=== PATIENT | female | born 1935 | race Caucasian/White ===

== ENCOUNTER 2017-12-16 07:35 | Inpatient (IN) | payer MEDICARE, OTHER, SELFPAY ==
[2017-12-05 09:47] VITALS: BMI 32.3
[2017-12-16] VITALS (21 sets, daily range): BP systolic 112–155; BP diastolic 47–85; PULSE 65–84; RESP 11–20; TEMP 36–37; O2SAT 90–97; BMI 29.8
--- NOTE | 2017-12-16 | DI.RAD.S_ITS ---
PROCEDURE: XR CHEST 1V INDICATIONS: History of lung tumors / nodules TECHNIQUE: One view of the chest was acquired. COMPARISON: None. FINDINGS: Surgical changes and devices: None. Lungs and pleura: No postsurgical changes are noted in left hilar region and left lower lung field. There is no focal infiltrate, pleural effusion or pneumothorax. Mediastinum: Tortuous thoracic aorta is noted. Mild atherosclerotic calcifications along the ascending thoracic aorta is seen. Cardiac size is normal. Bones and chest wall: No suspicious bony lesions. Overlying soft tissues appear unremarkable. Impression: Postsurgical changes in left hilar region and left lower lung field. No acute cardiopulmonary pathology. Dictated by: Luciano Zazueta M.D. on 12/16/2017 at 9:42 Approved by: Luciano Zazueta M.D. on 12/16/2017 at 10:03
--- NOTE | 2017-12-16 | DI.RAD.S_ITS ---
PROCEDURE: XR LUMBAR SPINE 2-3V INDICATIONS: L4-5 TLIF TECHNIQUE: 2 views of the lumbar spine were acquired. COMPARISON: [facility] [place], [facility], XR LUMBAR SPINE 2 OR 3 VIEWS, 11/03/2017, 15:53. [facility] [place], RF, LUMBAR TRANSLAMINAR, 06/02/2017, 15:07. [facility] [place], RF, LUMBAR FACET, 04/21/2017, 14:02. [facility] [place], RF, LUMBAR TRANSLAMINAR, 03/07/2017, 7:53. [facility] [place], CR, XR LUMBAR SPINE WITH OBLIQUES, 02/27/2017, 8:31. FINDINGS: Bones: 5 [id number] vertebrae are present. There is normal bony alignment. No vertebral body compression fractures. No suspicious bony lesions. Soft tissues: Overlying bowel gas pattern is normal. No suspicious soft tissue calcifications. IMPRESSION: Normal alignment established after bilateral transverse pedicle screw placement and vertical fixation rods crossing L4-5, with interbody cage this prosthesis centrally positioned at the L4-5 interspace. Dictated by: Brodie Puga M.D. on 12/16/2017 at 13:25 Approved by: Brodie Puga M.D. on 12/16/2017 at 13:37
[2017-12-16] MEDS: LACTATED RINGERS 1,000 ML 42 ML IV ×2 (09:09→11:17)
[2017-12-16] MEDS: APREPITANT 40 MG CAPSULE PO (09:09)
[2017-12-16] MEDS: CEFAZOLIN 2 GM/100 ML FROZ.PIGGY IV ×2 (10:03→18:24)
--- NOTE | 2017-12-16 10:08 | P.OP_ITS ---
Operative Date/Time/Diagnoses Date of procedure: 12/16/17 Time of procedure: 12:37 Pre-op diagnosis: lumbar stenosis with radiculopathy Lumbar spondylolisthesis Post-op diagnosis: same Procedure & Clinicians Procedure: L4-5 laminectomy with microscope L4-5 TLIF (post/post innerbody fusion) cage screws icbg microscope placement of epidural catheter Same procedure as scheduled: Yes Indications: [age] year old female with intractable pain from stenosis. They had failed conservative management and requested operative intervention. Risks and benefits of surgery were discussed and appropriate consents were obtained. Surgeon: Sky Jimenez [employer] Technician: Dominique Charles Click Yes if Unassisted: No Anesthesia Type: General Operative Notes Findings: none Closure Type: primary Specimen(s): none sent Implants & Drains: NuVasive Reline MAS screws and Globus Rise cage Applied: catheter Estimated Blood Loss (mL): 20 Blood products transfused: none Procedure in detail: The patient was brought to the operating room and intubated on the table. A time-out was performed. They were then rolled over to the well-padded Chito table in the prone position. Preoperative antibiotics were given. The back was prepped and draped in the standard sterile fashion. Using fluoroscopy, a 4 cm longitudinal incision was made to the left of the midline. We used Bovie to come down to and split the lumbodorsal fascia. Using fluoroscopy and monitoring, we then percutaneously placed Jamshidi needles down the pedicles of L4 and L5 on the left side. These were changed out to guidewires and then we tapped and then placed the NuVasive MAS Precept screw shanks. We then opened up the retractors and used Bovie to clear up the posterolateral gutter as well as medially along the lamina to the spinous processes. A bur was used to decorticate the transverse processes. Using a combination of bur and Kerrison rongeurs, a laminectomy was performed from the left side. We cleared over past the midline and carefully depressed the dura until we were able to decompress the opposite side. We cleared out the neural foramen. This completed the laminectomy at L4-5. This was separate and distinct from the TLIF approach as we were decompressing the severely tight canal and the nerves. We then began the TLIF prep. A complete facetectomy was performed on this side at L4-5. We carefully cleaned up the remainder of the foramen until we could easily retract the exiting root as well as clearing medially below the dura and expose the disc space. The disc was prepped with bipolar and then an annulotomy was performed. We performed a diskectomy using a combination of paddles, radha, Kerrison, and curettes. We distracted the disc using a paddle and locked the retractor in an open position. We then filled the disc space with Osteocell bone graft. We then placed the globus Rise cage under fluoroscopy and then filled this in with more bone graft. The distraction on the retractor was released to compress down. This completed the posterior interbody fusion portion of the TLIF at L4-5. We then placed the screw heads, stephen, and locked down the set screws. The wound was copiously irrigated. A small stab incision was made over the PSIS. We used a Jamshidi needle to aspirate several mL of bone marrow from the pelvis. This was mixed with the remaining Osteocell and combined with all of the locally harvested bone graft and placed in the posterolateral gutter for the posterior fusion of the TLIF at L4-5. An epidural catheter was then placed in the spinal canal by carefully depressing the dura and advancing it 6 cm cephalad under the remaining lamina without resistance. The muscle fascia was closed. The catheter was then injected with a solution containing 4 mL of 0.5% Marcaine, 1 mg Stadol, 4 mg Duramorph, and 100 mcg of fentanyl. This was injected without resistance and the catheter was pulled. We then went to the opposite side. Again using fluoroscopy, a 3 cm incision was made and Bovie was used to come down to split the fascia. Using neural monitoring and fluoroscopy, Jamshidi needles were advanced down the pedicles of L4 and L5 on the right side. These were switched over guidewires, tapped, and screws placed. We then placed a stephen and locked the set screws on this side. The wound was irrigated. The fascia was closed. Vancomycin powder was placed in the wounds. The superficial and skin were closed. A sterile dressing was placed. The patient was then rolled over extubated and brought to recovery room without complications. Complications: none Condition: stable Disposition: PACU Plan for aftercare: Inpatient. Up with therapy
--- NOTE | 2017-12-16 10:38 | SUR.OPER ---
Prone on spine table, head in foam head support, padded chest and pelvic supports, gel pad at knees, lower legs supported by pillows; nipples, genitalia and toes free of pressure, arms secured on foam padded arm boards at <90 degrees abduction. Tape over blanket at thigh secured to table.
[2017-12-16] MEDS: VANCOMYCIN 1,000 MG VIAL 1000 MG TOP (10:49)
[2017-12-16] MEDS: SODIUM CHLORIDE 0.9% 1,000 ML, GENTAMICIN 80 MG IRR ×2 (10:49→10:51)
[2017-12-16] MEDS: BUPIVACAINE 0.5% (PF) 4 ML, MORPHINE-PF 4 MG, BUTORPHANOL 1 MG, fentaNYL 100 MCG INJ (10:53)
[2017-12-16] MEDS: THROMBIN (BOVINE) 5,000 UNIT VIAL 5000 UNIT TOP (11:00)
[2017-12-16] MEDS: hydrOXYzine 50 MG/ML INJ 25 MG IM (13:36)
[2017-12-16] MEDS: fentaNYL 100 MCG/2 ML INJ 25 MCG IV ×2 (13:36→13:49)
--- NOTE | 2017-12-16 14:08 | SUR.PHASEI ---
attempted to call report, rn unavailable [phone]
[2017-12-16] MEDS: LACTATED RINGERS 1,000 ML 125 ML IV ×2 (15:00→23:51)
--- NOTE | 2017-12-16 15:09 | PT.IPTN ---
Current Diagnoses Spondylolisthesis, lumbar region (12/16/17) Spinal stenosis, lumbar region with neurogenic claudication (12/16/17) Surgery Performed Operation Date: 12/16/17 10:15 Actual Procedures p L4-5 TLIF w/ Bone Graft - Sky Jimenez MD Physical Therapy Treatment Note M3 PT-IP Subjective Start: 12/16/17 15:08 Freq: NEEDED Status: Active Protocol: Document 12/16/17 15:08 AB (Rec: 12/16/17 15:09 AB [id number]) Subjective Physical Therapy Visit Type Type Patient Refusal Notes checked on pt and nurse stated that pt just got into the floor. talked to pt and refused PT at this time and wants to just rest but agreed for PT to check on her later on today.
--- NOTE | 2017-12-16 15:36 | PC.NURSE ---
Pt arrived to room at 1435. Awakens to verbal stimuli, denies discomfort at this time. IV infusing via pump as per orders. in room. Call light w/in reach, bed alarm on for pt safety.
[2017-12-16] MEDS: ACETAMINOPHEN 325 MG TABLET 975 MG PO (20:33)
[2017-12-16] MEDS: PRAMIPEXOLE 0.125 MG TABLET 0.25 MG PO (20:33)
[2017-12-16] MEDS: DOCUSATE 100 MG CAPSULE PO (20:33)
[2017-12-16] MEDS: GABAPENTIN 300 MG CAPSULE PO (20:33)
[2017-12-16] MEDS: SENNOSIDES 8.6 MG TABLET 17.2 MG PO (20:34)
--- NOTE | 2017-12-16 21:53 | PC.NURSE ---
Angelika shift- Pt arrived to room 204 from PACU via bed @ 1420- coversite drsg to lower back CDI with tiny spot to bottom left corner serosang drainage. Pt was obtunded, but now drowsy and resting quietly with eyes closed. Easily awakened throughout shift, answers questions appropriately. A/O x3, LS clear, remains on 1L for SpO2 95-96%, cont pulse ox on for 12 hrs. RAC LR @ 125 infusing. Small red abrasion to top right orbital area, possible from tubing or mask during surgery. 2 x 2 gauze under O2 tubing on each check for skin protection. CMS ++, ankle waves, wiggle toes, calf SCD'd on. Waller patent and draining clear yellow urine. Q-2 turning. stayed for a while and will return in morning. Able to swallow all 9 pills at one time. Call light in reach and bed alarm on.
[2017-12-17] VITALS (7 sets, daily range): BP systolic 94–141; BP diastolic 42–66; PULSE 61–85; RESP 16–18; TEMP 36.6–37; O2SAT 91–98
[2017-12-17] MEDS: CEFAZOLIN 2 GM/100 ML FROZ.PIGGY IV (02:16)
--- NOTE | 2017-12-17 03:59 | PC.NURSE ---
Addendum entered by Marisela Mitchell R.N. 12/17/17 07:00: Has been off of 02 for an hour. 88- 91%. Increased to 1/2L 95% Original Note: shift note Met pt at start of shift. Alert during shift report, with no complaints of pain. No complaints of N/VAOx3. 1L nasal cannula 96%. Decreased to 1/2L with 96%. Waller draining clear, yellow urine. Pt remains in bed throughout shift sleeping. 1 4 by 4 dressing, mostly saturated. Reinforced. Q2H turns. Call light within reach.
[2017-12-17] MEDS: LEVOTHYROXINE 75 MCG TABLET PO (05:39)
[2017-12-17] MEDS: OXYCODONE IR 5 MG TABLET PO ×2 (05:39→09:13)
[2017-12-17] MEDS: PANTOPRAZOLE 20 MG TABLET PO (05:40)
[2017-12-17 05:41] LABS: Hematocrit 36.1 % (36-46)
[2017-12-17 05:55] LABS: BUN Creatinine Ratio 18.2 (6-22); Blood Urea Nitrogen 20 mg/dL (7-17); Calcium 8.8 mg/dL (8.4-10.2); Carbon Dioxide 28 mmol/L (22-32); Chloride 105 mmol/L (98-107); Estimated Glomerular Filt Rate 47.7 mL/min (>60); Glucose 146 mg/dL (80-110); HEMOLYSIS < 15 (0-50); Potassium 4.7 mmol/L (3.4-5.1); Sodium 138 mmol/L (137-145)
--- NOTE | 2017-12-17 06:36 | PM.PNPO.1 ---
Subjective Date Patient Seen: 12/17/17 Time Patient Seen: 06:36 Interval history: Pain level is fairly minimal laying in bed. Exam Vital Signs (past 8 hours): - 12/16/17 23:49 12/17/17 04:26 Temperature 98.6 F 98.4 F Pulse Rate 65 69 Respiratory Rate 16 16 Blood Pressure 131/64 H 141/59 H Pulse Oximetry 97 97 Oxygen Delivery Method Nasal Cannula Oxygen Flow Rate 2 Const Orientation: alert and oriented x3 Back/Spine/Pelvis Other: dressing reinforced overnight but new dressing clean dry intact. 5/5 motor both lower extremities Objective Labs Result Diagrams: 12/17/17 05:30 12/17/17 05:30 Labs: Laboratory Results - last 24 hr 12/17/17 12/17/17 05:30 05:30 Hgb 12.0 Hct 36.1 Sodium 138 Potassium 4.7 Chloride 105 Carbon Dioxide 28 BUN 20 H Creatinine 1.10 H Estimated GFR 47.7 L BUN/Creatinine Ratio 18.2 Glucose 146 H Calcium 8.8 Assessment & Plan Post-op Postoperative Procedures Operation Date: 12/16/17 10:15 Actual Procedures Side Surgeon p L4-5 TLIF w/ Bone Graft Sky Jimenez MD she is doing very well postop. Mobilize with physical therapy. Anticipate discharge home in 2-3 days her glucose is elevated and we will monitor and treat this. Time Spent With Patient less than 15 minutes
[2017-12-17] MEDS: DOCUSATE 100 MG CAPSULE PO ×2 (09:13→20:05)
[2017-12-17] MEDS: hydrOXYzine pamoate 25 MG CAPSULE PO (09:13)
[2017-12-17] MEDS: ACETAMINOPHEN 325 MG TABLET 975 MG PO ×2 (09:13→20:06)
[2017-12-17] MEDS: CITALOPRAM 20 MG TABLET 40 MG PO (09:13)
[2017-12-17] MEDS: INSULIN ASPART 100 UNIT/ML INSULN PEN SUBCUT ×3 (09:13→20:43)
[2017-12-17] MEDS: OXYBUTYNIN 5 MG TABLET PO (09:13)
--- NOTE | 2017-12-17 10:15 | PT.IIE ---
Current Diagnoses Spondylolisthesis, lumbar region (12/16/17) Spinal stenosis, lumbar region with neurogenic claudication (12/16/17) Surgery Performed Operation Date: 12/16/17 10:15 Actual Procedures p L4-5 TLIF w/ Bone Graft - Sky Jimenez MD Surgical History (Last Reviewed 12/16/17 @ 16:52 by Renaldo Michael, PT, DC) H/O cataract removal with insertion of prosthetic lens (Acute) History of breast biopsy (Acute) History of cholecystectomy (Acute) History of colonoscopy (Acute) History of lung biopsy (Acute) Hx of appendectomy (Acute) Status post biopsy of kidney (Acute) Status post cataract extraction of both eyes with insertion of intraocular lens (Acute) Status post right foot surgery (Acute) Medical History (Last Updated 12/05/17 @ 10:10 by Maricel Cevallos RN) Arthritis (Acute) Chronic renal failure (Acute) Colitis (Acute) Depression (Acute) Dyspnea (Acute) Frequent headaches (Acute) GERD (gastroesophageal reflux disease) (Acute) Glaucoma (Acute) HTN (hypertension) (Acute) Hiatal hernia (Acute) History of anemia (Acute) History of basal cell cancer (Acute) History of colitis (Acute) Hypothyroid (Acute) Obesity (BMI 30.0-34.9) (Acute) Osteopenia (Acute) Psoriasis (Acute) Pulmonary nodules (Acute) RLS (restless legs syndrome) (Acute) Sleep apnea (Acute) Spinal stenosis (Acute) Spinal stenosis, lumbar (Acute) Thrombocytopenia (Acute) Tumor (Acute) Urticaria (Acute) Physical Therapy Inpatient Evaluation/Re-Eval M1 PT/OT-IP Prior Functional Status Start: 12/16/17 15:08 Freq: NEEDED Status: Active Protocol: Document 12/17/17 10:15 MDD (Rec: 12/17/17 11:08 MDD [id number]) Medical Review Prior Functional Status Medical History Reviewed Yes Communication word finding difficulties, intermittently garbled speech, appropriately responding to questions/demands Mobility and Gait mod Ind with 4WW in the home. Doesn't go into the community without another person with her Activities of Daily Living and IADL's does the cooking, cleaning, laundry etc. Prior Functional Level (Other details) Pt previously independent with dressing, except gets assist from for shoes/socks. Social History Household Members spouse Living Arrangements House Number of Floors (Floors) One Floor Number of Stairs To Enter/Railing? 3 steps to enter, R hand railing. Home Environment Standard Height Toilet Walk in Shower Home Equipment Four Wheel Walker Shower Seat without Backrest Bed Rails Employment Status Retired M2 PT-IP Current Condition Start: 12/16/17 15:08 Freq: NEEDED Status: Active Protocol: Document 12/17/17 10:15 MDD (Rec: 12/17/17 11:08 MDD [id number]) Physical Therapy Current Condition Current Condition Evaluation Date 12/17/17 Treatment Diagnosis s/p TLIF L4-5 Onset Date 12/16/17 Precautions Lumbar Precautions Log Roll No Twisting Limit Bending Lifting Restriction of 10 lbs Gait Belt above Incisional Area M3 PT-IP Subjective Start: 12/16/17 15:08 Freq: NEEDED Status: Active Protocol: Document 12/17/17 10:15 MDD (Rec: 12/17/17 11:08 MDD [id number]) Subjective Physical Therapy Visit Type Type Initial Evaluation Visit Start Time 09:32 Visit Stop Time 10:15 Total Visit Minutes 43 Number of [employer] Visits 0 Physical Therapy Visit Comments Patient Comments Agreeable to working with therapy. Upset that she spilled her coffee. Therapy Pain Assessment Pain When Pain Assessed At Rest Pain Present Pain Present Denied Pain M4 PT-IP Mobility and Gait Start: 12/16/17 15:08 Freq: NEEDED Status: Active Protocol: Document 12/17/17 10:15 MDD (Rec: 12/17/17 11:08 MDD [id number]) PT-Bed Mobility Assessment Rolling Type of Rolling Log Rolling Roll to Right Level of Assist Minimal Assistance Supine to Sit Supine to Sit Minimal Assistance Scooting Scooting to Edge of Bed Contact Guard Assistance PT-Transfer Assessment Sit to and From Stand Sit to and from Stand Contact Guard Assistance Equipment Transfer Assistive Device Gait Belt Front Wheeled Walker Transfers Transfer Destination Chair Transfer Technique Stand Pivot Transfer Ability Level of Assist Contact Guard Assistance Gait Assessment Gait Gait Assistance Required: Contact Guard Assist Distance (Feet) (feet) 15 Assistive Devices Assistive Device Gait Belt Front Wheeled Walker Gait Deviations General Gait Pattern Narrow Based Gait Comments Gait Comments Pt did have one small LOB. Was able to steady herself. Reports baseline low level dizziness. PT-Balance Assessment Sitting Balance and Reactions Static Sitting Balance Ability Normal Dynamic Sitting Balance Ability Normal Standing Balance and Reactions Static Standing Balance Ability Good Dynamic Standing Balance Ability Fair M5 PT-IP Objective Assessments Start: 12/16/17 15:08 Freq: NEEDED Status: Active Protocol: Document 12/17/17 10:15 MDD (Rec: 12/17/17 11:08 MDD [id number]) Orientation Orientation/Cognition Level of Alertness Alert Orientation Name Age Place Situation Language Function Ability Garbled Speech Word Finding Difficulties Safety Awareness Understands Safety Issues Memory Description Short Term Impaired Comments Pt reports some short term memory loss. When asked if her word finding difficulties are normal, states it's okay . Gross Range of Motion Lower Extremity ROM Assessment Within Functional Limits Strength Lower Extremity Strength Assessment Within Functional Limits Sensation Assessment Sensation Gross Sensation WNL Light Touch Intact M6 PT-IP Treatment Start: 12/16/17 15:08 Freq: NEEDED Status: Active Protocol: Document 12/17/17 10:15 MDD (Rec: 12/17/17 11:08 MDD [id number]) Physical Therapy Treatment Education Education Provided Precautions Weight Bearing Status Post-Op Packet Safety M7 PT-IP Assessment and Plan Start: 12/16/17 15:08 Freq: NEEDED Status: Active Protocol: Document 12/17/17 10:15 MDD (Rec: 12/17/17 11:08 MDD [id number]) PT Summary Assessment and Plan Potential Rehabilitation Potential Excellent Summary Impairments Pain Cognition Bed Mobility Transfers Gait Activity Tolerance Progress Towards Goals Progressing Toward Goals Assessment Summary Pt required min A for bed mobility this day and was able to ambulate 15 feet using FWW to the recliner. Will benefit from continued skilled therapy to improve bed mobility, gait and balance. Goals Bed Mobility Goal Independent Transfer Goal Independent Gait Goal Independent Gait Distance 50 feet w/ FWW Other Goals ascend/descend 3 stairs with R hand rail Days to Meet Goals 3 Frequency of Treatment Frequency Of Treatment Twice a Day Treatment Plan Physical Therapy Treatment Plan Bed Mobility Training Transfer Training Gait Training Post Op Education Other Recommendations and Next Treatment Continue with bed mobility and Focus increase gait distance. Recommendations To Nursing Amount of Assist Needed 1 Person Assist Discharge Recommendations PT Discharge Recommendations Home Home with Assistance Equipment Needed for Home Before FWW - reports he can Discharge get one. May consider a shower chair, raised toilet seat.
--- NOTE | 2017-12-17 11:57 | OT.IP.EVAL ---
Current Diagnoses Spondylolisthesis, lumbar region (12/16/17) Spinal stenosis, lumbar region with neurogenic claudication (12/16/17) Surgery Performed Operation Date: 12/16/17 10:15 Actual Procedures p L4-5 TLIF w/ Bone Graft - Sky Jimenez MD Past Medical History (Last Updated 12/05/17 @ 10:10 by Maricel Cevallos RN) Arthritis (Acute) Chronic renal failure (Acute) Colitis (Acute) Depression (Acute) Dyspnea (Acute) Frequent headaches (Acute) GERD (gastroesophageal reflux disease) (Acute) Glaucoma (Acute) HTN (hypertension) (Acute) Hiatal hernia (Acute) History of anemia (Acute) History of basal cell cancer (Acute) History of colitis (Acute) Hypothyroid (Acute) Obesity (BMI 30.0-34.9) (Acute) Osteopenia (Acute) Psoriasis (Acute) Pulmonary nodules (Acute) RLS (restless legs syndrome) (Acute) Sleep apnea (Acute) Spinal stenosis (Acute) Spinal stenosis, lumbar (Acute) Thrombocytopenia (Acute) Tumor (Acute) Urticaria (Acute) Surgical History (Last Reviewed 12/16/17 @ 16:52 by Renaldo Michael, PT, DC) H/O cataract removal with insertion of prosthetic lens (Acute) History of breast biopsy (Acute) History of cholecystectomy (Acute) History of colonoscopy (Acute) History of lung biopsy (Acute) Hx of appendectomy (Acute) Status post biopsy of kidney (Acute) Status post cataract extraction of both eyes with insertion of intraocular lens (Acute) Status post right foot surgery (Acute) Occupational Therapy Inpatient Evaluation/Re-Eval M1 PT/OT-IP Prior Functional Status Start: 12/16/17 15:08 Freq: NEEDED Status: Active Protocol: Document 12/17/17 11:57 PJM (Rec: 12/17/17 17:44 PJM [email or web address]) Medical Review Prior Functional Status Medical History Reviewed Yes Diet/Fluid Consistency Regular Communication significant word finding difficulties this session, intermittently garbled speech, appropriately responding to questions/demands; RN aware and feels it may be medication related. reports pt had occasional word finding difficulties and memory problems prior to admit. Mobility and Gait mod Ind with 4WW in the home. Doesn't go into the community without another person with her Activities of Daily Living and IADL's Pt independent with self care except assisted with shoes and socks at times. does all IADLS, including transport . Social History Household Members spouse Living Arrangements House Number of Floors (Floors) One Floor Number of Stairs To Enter/Railing? 3 with R hand rail ascending Home Environment Standard Height Toilet Walk in Shower Home Equipment Four Wheel Walker Shower Seat without Backrest Hand Held Shower Long Handled Sponge Long Handled Shoe Horn Paper Coating Supervisor Employment Status Retired Additional Social History Comment will obtain FWW, sock aid, toilet tongs, elastic laces for shoes and can also assist pt PRN M2 OT-IP Current Condition Start: 12/17/17 17:24 Freq: Status: Active Protocol: Document 12/17/17 11:57 PJM (Rec: 12/17/17 17:44 PJM [email or web address]) Occupational Therapy Current Condition Current Condition Evaluation Date 12/17/17 Treatment Diagnosis decreased self care, functional mobility s/p L4-5 lami, TLIF Diagnosis Onset Date 12/16/17 Post Operative Precautions Lumbar Precautions Log Roll No Twisting Limit Bending Lifting Restriction of 10 lbs Gait Belt above Incisional Area M3 OT- IP Subjective and Pain Start: 12/17/17 17:24 Freq: Status: Active Protocol: Document 12/17/17 11:57 PJM (Rec: 12/17/17 17:44 PJM [email or web address]) OT- Subjective Occupational Therapy Visit Type Type Initial Evaluation Visit Start Time 11:04 Visit Stop Time 11:57 Total Visit Minutes 53 Notes here for education this session. Occupational Therapy Visit Comments Patient Comments I can't talk right today. Patient/Caregiver Goals to go home OT Pain Assessment Pain When Pain Assessed After Treatment Pain Present Pain Present Pain Reported Location Back Intensity 3 Scale Used Numeric (1 - 10) Description Aching Pain Behaviors Facial Grimacing Restlessness M4 OT- IP ADL's Start: 12/17/17 17:24 Freq: Status: Active Protocol: Document 12/17/17 11:57 PJM (Rec: 12/17/17 17:44 PJM [email or web address]) OT [id number] General Evaluation Self-Feeding Ability Independent OT ADL-Grooming General Evaluation Grooming Ability Standby Assistance Areas Needing Assistance Retrieving/Set-up of Grooming Items Face Washing Comments OT Grooming Comments seated in chair after set up OT ADL-Oral Care General Eval Areas of Assistance Brushing Teeth Comments Oral Care Comments seated in chair after set up OT ADL-Dressing General Eval Lower Body Dressing Ability Maximum Assistance Assistive Devices Dressing Assistive Devices Elastic Shoe Laces Long Handled Shoe Horn Paper Coating Supervisor Sock Aid Comments OT Dressing Comments Began education re: use of aircraft de icer installer, sock aid, long shoe horn elastic laces for lower body dressing. Provided resources for sock aid and elastic laces to . Pt has aircraft de icer installer and gave long shoe horn. can assist pt PRN at home with dressing. OT ADL-Toileting General Evaluation Toileting Ability Total Assistance Areas Needing Assistance Empty Catheter or Colostomy Comments OT Toileting Comments did not occur this session, pt still has whaley. Provided education re: toilet tongs and resource for obtaining them. Provided education re: body mechanics. OT ADL-Bathing Devices Bathing Equipment Long Handled Sponge or Employee Benefits Attorney Held Shower Sprayer Shower Chair without Arms Comments OT Bathing Comments to be assessed as activity tolerance improves M5 OT- IP IADL's Start: 12/17/17 17:24 Freq: Status: Active Protocol: Document 12/17/17 11:57 PJM (Rec: 12/17/17 17:44 PJM [email or web address]) OT-Instrumental Activities of Daily Living Deficits IADL Deficits Identified Deficits Home Safety Awareness Awareness of Need for Assistance at Home Good Awareness Medication Management Medication Management Caregiver Provides Supervision Money Management Money Management Caregiver Provides Assistance Meal Preparation Meal Preparation Caregiver Provides Assist Hide Inspector And Sorter Hide Inspector And Sorter Caregiver Provides Assist Driving Driving Caregiver Provides Assist M6 OT- IP Functional Cognition Start: 12/17/17 17:24 Freq: Status: Active Protocol: Document 12/17/17 11:57 PJM (Rec: 12/17/17 17:44 PJM [email or web address]) Cognitive Factors Limiting Selfcare Function Cognitive Ability Level of Alertness Alert Patient Orientation Name Year Place Attention Span Ability Capable of Focused Attention Ability to Follow Commands Able to Follow One Step Commands Memory Description Short Term Impaired Safety Awareness Decreased Recall of Precautions Decreased Ability to Apply Precautions Problem Solving Ability Unable to Identify Errors Needs Assist to Identify Solutions Cognitive Comments Cognitive Assessment Comments Significant word finding deficits interfering with communication this session; RN aware. OT- Vision and Hearing OT- Hearing Assessment OT- Hearing Assessment WFL OT- Vision Assessment Visual Acuity Glasses All The Time Vision Assessment Comments Pt denies any recent vision changes M7 OT- IP Mobility and Balance Start: 12/17/17 17:24 Freq: Status: Active Protocol: Document 12/17/17 11:57 PJM (Rec: 12/17/17 17:44 PJM [email or web address]) OT-Transfer Assessment Comments Mobility Comments See P.T. assessment OT- Gait Assessment Comments Gait Ability Comments See P.T. assessment OT- Balance Assessment Comments Other Balance Tests/Deviations/Treatment See P.T. assessment : M8 OT- IP Objective Assessments Start: 12/17/17 17:24 Freq: Status: Active Protocol: Document 12/17/17 11:57 PJM (Rec: 12/17/17 17:44 PJM [email or web address]) OT Gross Range of Motion Upper Extremity Range of Motion Assessment Within Functional Limits OT Strength Upper Extremity Strength Assessment Within Functional Limits OT- Coordination Assessment Comments Coordination Comments BUE WFL OT-Muscle Tone Assessment Muscle Tone WNL Yes OT Sensation Assessment Comments Summary Comments WFL BUE M9 OT- IP Assessment and Plan Start: 12/17/17 17:24 Freq: Status: Active Protocol: Document 12/17/17 11:57 PJM (Rec: 12/17/17 17:44 PJM [email or web address]) OT Summary Assessment and Plan Potential Rehabilitation Potential Good Analytic Complexity at Evaluation Low Summary OT Impairments Pain Balance Functional Cognition Functional Mobility Grooming Dressing Toileting Bathing Toilet Transfers Shower Transfers Assessment Summary Low complexity OT assessment completed with emphasis on self care skills within lumbar spine precautions. here for education re: precautions, adapted ADLS, dressing and bathroom safety equipt options. Per , pt has some memory problems and occasional word finding deficits at baseline. Pt having significant word finding deficits today possible due to meds; RN aware . Pt has performance deficits in all functional mobility, transfers, standing grooming, lower body dressing, bathing, toileting and will benefit from OT services here to address the goals below. Anticipate pt will d/c home with 24 hr assist from supportive if she continues to improve here. Goals Grooming Goal Standby Assistance Dressing Goal Standby Assistance Toileting Goal Standby Assistance Bathing Goal Minimal Assistance Shower Transfer Goal Contact Guard Assistance Patient/Caregiver Education Goal Demonstrate Post-Op Precautions Caregiver Independent Assisting Patient OT-Other Goals grooming to be done standing at sink with good body mechanics Days to Meet Goals 3 Frequency of Treatment Frequency Of Treatment Once a Day Treatment Plan OT Treatment Plan ADL Training Functional Mobility Patient/Family Education Discharge Planning Discharge Recommendations OT Discharge Recommendations Home with 24/7 Assist Home Equipment Needs to obtain toilet paper aid, sock aid, elastic laces, FWW
--- NOTE | 2017-12-17 12:41 | PC.NURSE ---
day shift pt states pain is controlled if she doesn't move. explained to pt that she will have to work with PT and provided pt with oxy and vistaril after discussion with pt since oxy alone did nothing for her pain this AM. She also had scheduled tylenol which was provided as well. pt states this did not really help her pain, still rates it 3/10. and now pt is having difficulty finding words and increased confusion. notified PA and order to hold vistaril which will be done. hourly rounding provided, call light within reach. will continue to monitor pt.
--- NOTE | 2017-12-17 13:55 | PT.IPTN ---
Current Diagnoses Spondylolisthesis, lumbar region (12/16/17) Spinal stenosis, lumbar region with neurogenic claudication (12/16/17) Surgery Performed Operation Date: 12/16/17 10:15 Actual Procedures p L4-5 TLIF w/ Bone Graft - Sky Jimenez MD Physical Therapy Treatment Note M2 PT-IP Current Condition Start: 12/16/17 15:08 Freq: NEEDED Status: Active Protocol: Document 12/17/17 10:15 MDD (Rec: 12/17/17 11:08 MDD [id number]) Physical Therapy Current Condition Current Condition Evaluation Date 12/17/17 Treatment Diagnosis s/p TLIF L4-5 Onset Date 12/16/17 Precautions Lumbar Precautions Log Roll No Twisting Limit Bending Lifting Restriction of 10 lbs Gait Belt above Incisional Area M3 PT-IP Subjective Start: 12/16/17 15:08 Freq: NEEDED Status: Active Protocol: Document 12/17/17 13:55 GGD (Rec: 12/17/17 15:33 GGD [email or web address]) Subjective Physical Therapy Visit Type Type Treatment Note Visit Start Time 13:25 Visit Stop Time 13:55 Total Visit Minutes 30 Number of SAND TECHNOLOGIST Visits 1 Physical Therapy Visit Comments Patient Comments Pt states she would like to return to bed. Therapy Pain Assessment Pain When Pain Assessed At Rest Pain Present Pain Present Denied Pain M4 PT-IP Mobility and Gait Start: 12/16/17 15:08 Freq: NEEDED Status: Active Protocol: Document 12/17/17 13:55 GGD (Rec: 12/17/17 15:33 GGD [email or web address]) PT-Bed Mobility Assessment Rolling Type of Rolling Log Rolling Roll to Right Level of Assist Minimal Assistance Sit to Supine Sit to Supine Minimal Assistance Bedrails Scooting Scooting to Edge of Bed Contact Guard Assistance PT-Transfer Assessment Sit to and From Stand Sit to and from Stand Contact Guard Assistance Equipment Transfer Assistive Device Gait Belt Front Wheeled Walker Transfers Transfer Destination Bed Gait Assessment Gait Gait Assistance Required: Contact Guard Assist Distance (Feet) (feet) 60 Assistive Devices Assistive Device Gait Belt Front Wheeled Walker Factors Limiting Gait Function Factors Limiting Gait Function Decreased Activity Tolerance Decreased Strength Pain Poor Safety Awareness M5 PT-IP Objective Assessments Start: 12/16/17 15:08 Freq: NEEDED Status: Active Protocol: Document 12/17/17 10:15 MDD (Rec: 12/17/17 11:08 MDD [id number]) Orientation Orientation/Cognition Level of Alertness Alert Orientation Name Age Place Situation Language Function Ability Garbled Speech Word Finding Difficulties Safety Awareness Understands Safety Issues Memory Description Short Term Impaired Comments Pt reports some short term memory loss. When asked if her word finding difficulties are normal, states it's okay . Gross Range of Motion Lower Extremity ROM Assessment Within Functional Limits Strength Lower Extremity Strength Assessment Within Functional Limits Sensation Assessment Sensation Gross Sensation WNL Light Touch Intact M6 PT-IP Treatment Start: 12/16/17 15:08 Freq: NEEDED Status: Active Protocol: Document 12/17/17 13:55 GGD (Rec: 12/17/17 15:33 GGD [email or web address]) Physical Therapy Treatment Education Education Provided Precautions M7 PT-IP Assessment and Plan Start: 12/16/17 15:08 Freq: NEEDED Status: Active Protocol: Document 12/17/17 13:55 GGD (Rec: 12/17/17 15:33 GGD [email or web address]) PT Summary Assessment and Plan Summary Assessment Summary Pt needed min A for bed mobility. She able to progress gait distance with FWW. Frequency of Treatment Frequency Of Treatment Twice a Day Treatment Plan Physical Therapy Treatment Plan Bed Mobility Training Transfer Training Gait Training Post Op Education Other Recommendations and Next Treatment Continue with bed mobility and Focus increase gait distance. Recommendations To Nursing Amount of Assist Needed 1 Person Assist Discharge Recommendations PT Discharge Recommendations Home Home with Assistance Equipment Needed for Home Before FWW - reports he can Discharge get one. May consider a shower chair, raised toilet seat.
--- NOTE | 2017-12-17 14:31 | CM.IDA ---
Addendum entered by KEYSHA Chery 12/18/17 15:02: 8.2.18; Met w/pt this afternoon, reviewed SW role and DCP. Pt/spouse, along w/Ortho team, therapy team, and nursing agree that pt will be okay to DC home w/supportive spouse Friday. Pt has some memory loss at baseline. This RISK SPECIALIST asks pt about HH? Pt wants to think about it and discuss w/spouse. This RISK SPECIALIST stated it could be reviewed again Friday upon DC if needed. Pt appreciative. JW Original Note: DCP Assessment Note: Pt is an 82 yo female, resident of [place]. Pt admitted for scheduled spinal surgery w/ Dr Jimenez. Pt's PCP is not listed; Insurance is Medicare/ [employer]. Met w/pt and her briefly at bedside as OT Betsey was finishing her eval. Pt was stating she was in pain but reported 3 out of 10 on the pain scale to KENAN Hagan. Pt was slurring words, speech somewhat garbled. KENAN Hagan stated it may take another 24-48hrs for medications to leave pt's system and for pt to return to baseline. Spouse is A+Ox3. There is a lot going on this morning in patient's room and pt/spouse requesting assessment tomorrow, . This RISK SPECIALIST will return to discuss DCP at that time. Following closely w/ assist and input from the therapy team. KEYSHA Chery Discharge Planning/Care Management CM Discharge Assessment Start: 12/17/17 14:23 Freq: Status: Active Protocol: Document 12/17/17 14:25 CHRISTINE (Rec: 12/17/17 14:31 CHRISTINE [id number]) Discharge Planning Assessment Assigned Child Abuse Worker CHRISTINE History Provided By Patient Significant Other Medical Record Has Patient been admitted in last 30 No days? Is this patient on Medicare? Yes Prior Living Arrangements House Household Members spouse Type of transporation used prior to Relies on Others admit Independent with ADL's Yes: Needs assist from spouse for higher ADLs Is patient alert and oriented? Yes Needs Assistance With Meal Prep Home Chores / Shopping Caregiver for Another No Comment Pending progress w/therapy team. Discharge Plan Home Transportation Arrangement Patient and spouse hope for return home w/spouse to assist Review Status In Process Next Review Type Discharge Review
--- NOTE | 2017-12-17 19:15 | PC.NURSE ---
Angelika shift note: Patient awake and alert, friends and family at bedside. Was previously noted to be confused. No confusion this shift, cooperative and calm. Up out of bed to BR with 1 person assist. Changed dressing to mid lower back due to serous drainage with 4 x4 and secured with Tegaderm. Vertical incisions x 2 well approximated with no abnormal discharge or active bleeding. Foot SCD in place. FC secured draining to gravity. BA active, call light within reach.
[2017-12-17] MEDS: PRAMIPEXOLE 0.125 MG TABLET 0.25 MG PO (20:05)
[2017-12-17] MEDS: GABAPENTIN 300 MG CAPSULE PO (20:05)
[2017-12-17] MEDS: SENNOSIDES 8.6 MG TABLET 17.2 MG PO (20:05)
[2017-12-18] VITALS (7 sets, daily range): BP systolic 127–137; BP diastolic 45–74; PULSE 66–83; RESP 16–20; TEMP 36.4–37.4; O2SAT 91–96
[2017-12-18] MEDS: OXYCODONE IR 5 MG TABLET PO ×2 (00:29→06:15)
--- NOTE | 2017-12-18 00:44 | PC.NURSE ---
Addendum entered by Luly Tidwell R.N. 12/18/17 06:21: Repositioned q2h. Dressing to back entirely saturated with sanguinous drainage but no leakage; order is to reinforce prn so not changed at this time. Medicated with Oxycodone for back and generalized achiness. CMS remains intact. Still on O2 with sat of 93%. Original Note: Patient is alert but seems somewhat confused. Did know self, hospital, year and date but not month or day of week. Breath sounds CTA but RA sat upon waking were at 84% so O2 restarted at 0.5L/min and sat now at 94%. HRR. Denies nausea. BT present and abdomen is soft; passing flatus. Indwelling catheter still in place and had discussion about removal in a.m.; patient verbalizes reluctance but is agreeable to having removed after next therapy session. Needing assistance to reposition in bed. Dressing to back is mostly saturated with sanguinous drainage but without leakage. States she has no pain when lying still but is 4/10 with movement; medicated with Oxycodone but declines offer of ice pack. Initially refused to have SCD's on but after provided explanation of purpose did agree to have them put back on. Fall risk score is high and bed alarm is activated.
[2017-12-18] MEDS: LEVOTHYROXINE 75 MCG TABLET PO (06:15)
[2017-12-18] MEDS: PANTOPRAZOLE 20 MG TABLET PO (06:15)
--- NOTE | 2017-12-18 07:24 | PM.PNPO.1 ---
Subjective Date Patient Seen: 12/18/17 Time Patient Seen: 07:25 Interval history: Patient is being mild at rest. More moderate to severe pain with movement. Her is at home with his sister. He has mobilized with physical in the room tonight home. Otherwise without complaints. Exam Vital Signs (past 8 hours): - 12/18/17 00:30 12/18/17 06:01 Temperature 97.7 F 97.5 F L Pulse Rate 75 66 Respiratory Rate 18 16 Blood Pressure 137/50 H 134/57 H Pulse Oximetry 94 96 Fraction of Inspired Oxygen 21 Oxygen Delivery Method Nasal Cannula Oxygen Flow Rate 0.5 Narrative Exam Narrative: Patient resting comfortably in bed. No apparent distress dressing is moist, intact. Motor functions intact distal bilateral lower extremities. The patient with intact distal bilateral lower extremities. Objective Labs Result Diagrams: 12/17/17 05:30 12/17/17 05:30 Assessment & Plan Post-op Postoperative Procedures Operation Date: 12/16/17 10:15 Actual Procedures Side Surgeon p L4-5 TLIF w/ Bone Graft Sky Jimenez MD Patient progressing as expected status post lumbar fusion. Mobilized in physical therapy today. Likely discharge home tomorrow. Time Spent With Patient less than 15 minutes
[2017-12-18] MEDS: ACETAMINOPHEN 325 MG TABLET 975 MG PO ×2 (08:55→21:34)
[2017-12-18] MEDS: OXYBUTYNIN 5 MG TABLET PO (08:55)
[2017-12-18] MEDS: CITALOPRAM 20 MG TABLET 40 MG PO (08:55)
[2017-12-18] MEDS: FLUTICASONE 120 SPRAY/16 GM SPRAY.SUSP NASAL (08:55)
[2017-12-18] MEDS: DOCUSATE 100 MG CAPSULE PO ×2 (08:55→21:34)
[2017-12-18] MEDS: SODIUM CHLORIDE 0.9% FLUSH 10 ML IV (08:56)
--- NOTE | 2017-12-18 09:40 | PT.IPTN ---
Current Diagnoses Spondylolisthesis, lumbar region (12/16/17) Spinal stenosis, lumbar region with neurogenic claudication (12/16/17) Surgery Performed Operation Date: 12/16/17 10:15 Actual Procedures p L4-5 TLIF w/ Bone Graft - Sky Jimenez MD Physical Therapy Treatment Note M2 PT-IP Current Condition Start: 12/16/17 15:08 Freq: NEEDED Status: Active Protocol: Document 12/17/17 10:15 MDD (Rec: 12/17/17 11:08 MDD [id number]) Physical Therapy Current Condition Current Condition Evaluation Date 12/17/17 Treatment Diagnosis s/p TLIF L4-5 Onset Date 12/16/17 Precautions Lumbar Precautions Log Roll No Twisting Limit Bending Lifting Restriction of 10 lbs Gait Belt above Incisional Area M3 PT-IP Subjective Start: 12/16/17 15:08 Freq: NEEDED Status: Active Protocol: Document 12/18/17 09:40 GGD (Rec: 12/18/17 11:21 GGD [id number]) Subjective Physical Therapy Visit Type Type Treatment Note Visit Start Time 09:10 Visit Stop Time 09:40 Total Visit Minutes 30 Number of TRANSPORT AIDE Visits 1 Physical Therapy Visit Comments Patient Comments Pt states she doing better. Therapy Pain Assessment Pain When Pain Assessed At Rest Pain Present Pain Present Denied Pain M4 PT-IP Mobility and Gait Start: 12/16/17 15:08 Freq: NEEDED Status: Active Protocol: Document 12/18/17 09:40 GGD (Rec: 12/18/17 11:21 GGD [id number]) PT-Transfer Assessment Sit to and From Stand Sit to and from Stand Contact Guard Assistance Equipment Transfer Assistive Device Gait Belt Front Wheeled Walker Transfers Transfer Destination Chair Comments Mobility Comments sit to stand x 3 for dressing change with NSG and brief donning. Gait Assessment Gait Gait Assistance Required: Contact Guard Assist Distance (Feet) (feet) 60 Assistive Devices Assistive Device Gait Belt Front Wheeled Walker Factors Limiting Gait Function Factors Limiting Gait Function Decreased Activity Tolerance Decreased Strength Pain Poor Safety Awareness Stair Climbing Assessment Evaluation Level of Assist On Stairs Contact Guard Assistance Devices Stair Climbing Assistive Devices Right Railing Technique/Endurance Stair Climbing Direction Ascend and Descend Stair Climbing Technique Step to Step Number of Steps Climbed 3 Query Text: Stair Climbing Set # Repetitions (reps) 1 Comments Stair Climbing Comments Pt need close CGA, and min cues. M5 PT-IP Objective Assessments Start: 12/16/17 15:08 Freq: NEEDED Status: Active Protocol: Document 12/17/17 10:15 MDD (Rec: 12/17/17 11:08 MDD [id number]) Orientation Orientation/Cognition Level of Alertness Alert Orientation Name Age Place Situation Language Function Ability Garbled Speech Word Finding Difficulties Safety Awareness Understands Safety Issues Memory Description Short Term Impaired Comments Pt reports some short term memory loss. When asked if her word finding difficulties are normal, states it's okay . Gross Range of Motion Lower Extremity ROM Assessment Within Functional Limits Strength Lower Extremity Strength Assessment Within Functional Limits Sensation Assessment Sensation Gross Sensation WNL Light Touch Intact M6 PT-IP Treatment Start: 12/16/17 15:08 Freq: NEEDED Status: Active Protocol: Document 12/18/17 09:40 GGD (Rec: 12/18/17 11:21 GGD [id number]) Physical Therapy Treatment Education Education Provided Precautions M7 PT-IP Assessment and Plan Start: 12/16/17 15:08 Freq: NEEDED Status: Active Protocol: Document 12/18/17 09:40 GGD (Rec: 12/18/17 11:21 GGD [id number]) PT Summary Assessment and Plan Summary Assessment Summary Pt improving with mobility. She was safe with stairs, but need cues. Frequency of Treatment Frequency Of Treatment Twice a Day Treatment Plan Other Recommendations and Next Treatment Continue with bed mobility and Focus increase gait distance. Recommendations To Nursing Amount of Assist Needed 1 Person Assist Discharge Recommendations PT Discharge Recommendations Home Home with Assistance Equipment Needed for Home Before FWW - reports he can Discharge get one. May consider a shower chair, raised toilet seat.
[2017-12-18] MEDS: INSULIN ASPART 100 UNIT/ML INSULN PEN SUBCUT (12:07)
--- NOTE | 2017-12-18 15:04 | PT.IPTN ---
Current Diagnoses Spondylolisthesis, lumbar region (12/16/17) Spinal stenosis, lumbar region with neurogenic claudication (12/16/17) Surgery Performed Operation Date: 12/16/17 10:15 Actual Procedures p L4-5 TLIF w/ Bone Graft - Sky Jimenez MD Physical Therapy Treatment Note M2 PT-IP Current Condition Start: 12/16/17 15:08 Freq: NEEDED Status: Active Protocol: Document 12/17/17 10:15 MDD (Rec: 12/17/17 11:08 MDD [id number]) Physical Therapy Current Condition Current Condition Evaluation Date 12/17/17 Treatment Diagnosis s/p TLIF L4-5 Onset Date 12/16/17 Precautions Lumbar Precautions Log Roll No Twisting Limit Bending Lifting Restriction of 10 lbs Gait Belt above Incisional Area M3 PT-IP Subjective Start: 12/16/17 15:08 Freq: NEEDED Status: Active Protocol: Document 12/18/17 15:00 GGD (Rec: 12/18/17 15:04 GGD [id number]) Subjective Physical Therapy Visit Type Type Treatment Note Visit Start Time 14:35 Visit Stop Time 15:00 Total Visit Minutes 25 Number of [employer] Visits 3 Physical Therapy Visit Comments Patient Comments Pt needs to go back to bed for NSG. Therapy Pain Assessment Pain When Pain Assessed At Rest Pain Present Pain Present Denied Pain M4 PT-IP Mobility and Gait Start: 12/16/17 15:08 Freq: NEEDED Status: Active Protocol: Document 12/18/17 15:00 GGD (Rec: 12/18/17 15:04 GGD [id number]) PT-Bed Mobility Assessment Rolling Type of Rolling Log Rolling Roll to Right Sit to Supine Sit to Supine Minimal Assistance Bedrails Scooting Scooting to Edge of Bed Contact Guard Assistance PT-Transfer Assessment Sit to and From Stand Sit to and from Stand Contact Guard Assistance Equipment Transfer Assistive Device Gait Belt Front Wheeled Walker Gait Assessment Gait Gait Assistance Required: Contact Guard Assist Distance (Feet) (feet) 20 Assistive Devices Assistive Device Gait Belt Front Wheeled Walker Factors Limiting Gait Function Factors Limiting Gait Function Decreased Activity Tolerance Decreased Strength Pain Poor Safety Awareness M5 PT-IP Objective Assessments Start: 12/16/17 15:08 Freq: NEEDED Status: Active Protocol: Document 12/17/17 10:15 MDD (Rec: 12/17/17 11:08 MDD [id number]) Orientation Orientation/Cognition Level of Alertness Alert Orientation Name Age Place Situation Language Function Ability Garbled Speech Word Finding Difficulties Safety Awareness Understands Safety Issues Memory Description Short Term Impaired Comments Pt reports some short term memory loss. When asked if her word finding difficulties are normal, states it's okay . Gross Range of Motion Lower Extremity ROM Assessment Within Functional Limits Strength Lower Extremity Strength Assessment Within Functional Limits Sensation Assessment Sensation Gross Sensation WNL Light Touch Intact M6 PT-IP Treatment Start: 12/16/17 15:08 Freq: NEEDED Status: Active Protocol: Document 12/18/17 09:40 GGD (Rec: 12/18/17 11:21 GGD [id number]) Physical Therapy Treatment Education Education Provided Precautions M7 PT-IP Assessment and Plan Start: 12/16/17 15:08 Freq: NEEDED Status: Active Protocol: Document 12/18/17 15:00 GGD (Rec: 12/18/17 15:04 GGD [id number]) PT Summary Assessment and Plan Summary Assessment Summary Pt need cues and min a with LE for sit to supine. She did have increase in pain with mobility. She need cues for safety. Frequency of Treatment Frequency Of Treatment Twice a Day Treatment Plan Other Recommendations and Next Treatment Continue with bed mobility and Focus family training. Recommendations To Nursing Amount of Assist Needed 1 Person Assist Discharge Recommendations PT Discharge Recommendations Home Home with Assistance Equipment Needed for Home Before FWW - reports he can Discharge get one. May consider a shower chair, raised toilet seat.
--- NOTE | 2017-12-18 16:21 | OT.IP.TRT ---
Current Diagnoses Spondylolisthesis, lumbar region (12/16/17) Spinal stenosis, lumbar region with neurogenic claudication (12/16/17) Surgery Performed Operation Date: 12/16/17 10:15 Actual Procedures p L4-5 TLIF w/ Bone Graft - Sky Jimenez MD Occupational Therapy Treatment Note M2 OT-IP Current Condition Start: 12/17/17 17:24 Freq: Status: Active Protocol: Document 12/18/17 16:13 [facility] (Rec: 12/18/17 16:18 [facility] [id number]) Occupational Therapy Current Condition Current Condition Evaluation Date 12/17/17 Treatment Diagnosis decreased self care, functional mobility s/p L4-5 lami, TLIF Diagnosis Onset Date 12/16/17 Post Operative Precautions Lumbar Precautions Log Roll No Twisting Limit Bending Lifting Restriction of 10 lbs Gait Belt above Incisional Area M3 OT- IP Subjective and Pain Start: 12/17/17 17:24 Freq: Status: Active Protocol: Document 12/18/17 16:18 [facility] (Rec: 12/18/17 16:21 [facility] [email or web address]) OT- Subjective Occupational Therapy Visit Type Type Treatment Note Visit Start Time 15:36 Visit Stop Time 16:01 Total Visit Minutes 25 Occupational Therapy Visit Comments Patient Comments Pt wanting to get up and use the bathroom. M4 OT- IP ADL's Start: 12/17/17 17:24 Freq: Status: Active Protocol: Document 12/18/17 16:13 [facility] (Rec: 12/18/17 16:18 [facility] [id number]) OT ADL-Dressing General Eval Lower Body Dressing Ability Moderate Assistance Comments OT Dressing Comments Able to use track laborer and therapist to assist to get brief on , pt states to assist with needed. OT ADL-Toileting General Evaluation Toileting Ability Contact Guard Assistance Comments OT Toileting Comments CGA for balance and vc for thoroughness for pericare needs . Pt able to wipe and maintain back precautions while sitting on the toilet. Recommended use of wipes and brief at home. M5 OT- IP IADL's Start: 12/17/17 17:24 Freq: Status: Active Protocol: Document 12/17/17 11:57 [facility] (Rec: 12/17/17 17:44 [facility] [id number]) OT-Instrumental Activities of Daily Living Deficits IADL Deficits Identified Deficits Home Safety Awareness Awareness of Need for Assistance at Home Good Awareness Medication Management Medication Management Caregiver Provides Supervision Money Management Money Management Caregiver Provides Assistance Meal Preparation Meal Preparation Caregiver Provides Assist Splicing Supervisor Splicing Supervisor Caregiver Provides Assist Driving Driving Caregiver Provides Assist M6 OT- IP Functional Cognition Start: 12/17/17 17:24 Freq: Status: Active Protocol: Document 12/18/17 16:13 [facility] (Rec: 12/18/17 16:18 [facility] [id number]) Cognitive Factors Limiting Selfcare Function Cognitive Ability Level of Alertness Alert Patient Orientation Name Year Place Attention Span Ability Capable of Focused Attention Ability to Follow Commands Able to Follow One Step Commands Memory Description Short Term Impaired Safety Awareness Decreased Recall of Precautions Decreased Ability to Apply Precautions Problem Solving Ability Unable to Identify Errors Needs Assist to Identify Solutions Cognitive Comments Cognitive Assessment Comments Pt only able to recall one back precaution, and continues to need vc for safety and follow through with precautions . M7 OT- IP Mobility and Balance Start: 12/17/17 17:24 Freq: Status: Active Protocol: Document 12/18/17 16:13 [facility] (Rec: 12/18/17 16:18 [facility] [email or web address]) OT- Bed Mobility Assessment Rolling Type of Rolling Log Rolling Supine to Sit Supine to Sit Assist Minimal Assistance Sit to Supine Sit to Supine Assist Minimal Assistance Scooting Scooting to Edge of Bed Minimal Assistance OT-Transfer Assessment Sit to and From Stand Sit to and from Stand Contact Guard Assistance Transfers Transfer Ability Contact Guard Assistance Technique Transfer Destination Bed Toilet Transfer Technique Stand Step Pivot Devices Transfer Assistive Devices Gait Belt Front Wheeled Walker Comments Mobility Comments SHELLY to assist to get trunk upright and BLE back into the bed. OT- Balance Assessment Sitting Balance and Reactions Static Sitting Balance Ability Normal Dynamic Sitting Balance Ability Good Standing Balance and Reactions Static Standing Balance Ability Fair M8 OT- IP Objective Assessments Start: 12/17/17 17:24 Freq: Status: Active Protocol: Document 12/17/17 11:57 [facility] (Rec: 12/17/17 17:44 [facility] [email or web address]) OT Gross Range of Motion Upper Extremity Range of Motion Assessment Within Functional Limits OT Strength Upper Extremity Strength Assessment Within Functional Limits OT- Coordination Assessment Comments Coordination Comments BUE WFL OT-Muscle Tone Assessment Muscle Tone WNL Yes OT Sensation Assessment Comments Summary Comments WFL BUE M9 OT- IP Assessment and Plan Start: 12/17/17 17:24 Freq: Status: Active Protocol: Document 12/18/17 16:13 [facility] (Rec: 12/18/17 16:18 [facility] [id number]) OT Summary Assessment and Plan Summary OT Impairments Pain Balance Functional Cognition Functional Mobility Grooming Dressing Toileting Bathing Toilet Transfers Shower Transfers Progress Towards Goals Slow Progress due to Activity Tolerance Slow Progress due to Cognition Goals Days to Meet Goals 2 Treatment Plan OT Treatment Plan ADL Training Functional Mobility Patient/Family Education Discharge Planning Other Treatment Recommendations and Next Family training with Treatment Focus and more practice with back precautions and shower if appropriate. Discharge Recommendations OT Discharge Recommendations Home with 24/ Assist
--- NOTE | 2017-12-18 19:45 | PC.NURSE ---
Angelika shift note: Patient awake and alert, 3 daughters and at bedside. Up out of bed multiple times to BR, slow mobility getting out of bed, once on feet able to stabilize self with walker and ambulates. Paced steady gait. Voided 275 ml, and + unmeasured void. Dressing to mid lower back, CDI. Pain to incision/lower back with movement, no pain at rest. States pain is well controlled with scheduled Tylenol and declined further pain medication. Oldest daughter Nicho expressed concern regarding patients disposition, she is concerned for her home safety. Dora lives with her 80 yr old and Nicho is concerned that he may not be able to help with her mobility. BA and call light withing reach. NO IV access, aware. Encouraging PO intake.
[2017-12-18] MEDS: SENNOSIDES 8.6 MG TABLET 17.2 MG PO (21:34)
[2017-12-18] MEDS: GABAPENTIN 300 MG CAPSULE PO (21:34)
[2017-12-18] MEDS: PRAMIPEXOLE 0.125 MG TABLET 0.25 MG PO (21:35)
[2017-12-19] MEDS: PANTOPRAZOLE 20 MG TABLET PO (06:00)
[2017-12-19] MEDS: LEVOTHYROXINE 75 MCG TABLET PO (06:00)
--- NOTE | 2017-12-19 08:11 | PM.PNPO.1 ---
Subjective Date Patient Seen: 12/19/17 Time Patient Seen: 08:12 Interval history: The patient is status post L4-[address] Jimenez. PD 3. Having hard time a getting in/out bed. Pt wet bed because she could not get out of bed to the restroom in time. Pain tolerable with pain medication. Plan is to D/C home but feels needs 1 more day in hospital. will be caregiver at home. Exam Vital Signs (past 8 hours): Fraction of Inspired Oxygen 21 Oxygen Delivery Method Room Air Oxygen Flow Rate 0 Narrative Exam Narrative: Patient in bed. Alert and oriented x3. Back dressing is clean dry intact. 5/5 BLE. Neurovascular status intact. Bilateral calf soft and nontender. Objective Labs Result Diagrams: 12/17/17 05:30 12/17/17 05:30 Assessment & Plan Post-op Postoperative Procedures Operation Date: 12/16/17 10:15 Actual Procedures Side Surgeon p L4-5 TLIF w/ Bone Graft Sky Jimenez MD Postop day 3. Patient is slow to mobilize and needs 1 more day in hospital for additional therapy. Continue physical therapy. Continue current pain regimen. Plan for DC home tomorrow. Time Spent With Patient less than 15 minutes
[2017-12-19 08:37] VITALS: BP 129/88; PULSE 79; RESP 16; TEMP 36.9
[2017-12-19] MEDS: OXYBUTYNIN 5 MG TABLET PO (09:18)
[2017-12-19] MEDS: FLUTICASONE 120 SPRAY/16 GM SPRAY.SUSP NASAL (09:18)
[2017-12-19] MEDS: ACETAMINOPHEN 325 MG TABLET 975 MG PO ×2 (09:18→20:44)
[2017-12-19] MEDS: CITALOPRAM 20 MG TABLET 40 MG PO (09:18)
--- NOTE | 2017-12-19 09:58 | OT.IP.TRT ---
Current Diagnoses Spondylolisthesis, lumbar region (12/16/17) Spinal stenosis, lumbar region with neurogenic claudication (12/16/17) Surgery Performed Operation Date: 12/16/17 10:15 Actual Procedures p L4-5 TLIF w/ Bone Graft - Sky Jimenez MD Occupational Therapy Treatment Note M2 OT-IP Current Condition Start: 12/17/17 17:24 Freq: Status: Active Protocol: Document 12/18/17 16:13 [facility] (Rec: 12/18/17 16:18 [facility] [id number]) Occupational Therapy Current Condition Current Condition Evaluation Date 12/17/17 Treatment Diagnosis decreased self care, functional mobility s/p L4-5 lami, TLIF Diagnosis Onset Date 12/16/17 Post Operative Precautions Lumbar Precautions Log Roll No Twisting Limit Bending Lifting Restriction of 10 lbs Gait Belt above Incisional Area M3 OT- IP Subjective and Pain Start: 12/17/17 17:24 Freq: Status: Active Protocol: Document 12/19/17 09:53 [facility] (Rec: 12/19/17 09:57 [facility] [id number]) OT- Subjective Occupational Therapy Visit Type Type Treatment Note Visit Start Time 09:20 Visit Stop Time 09:45 Total Visit Minutes 25 Occupational Therapy Visit Comments Patient Comments Pt willing to practice bed mobility needs. OT Pain Assessment Pain When Pain Assessed At Rest Pain Present Pain Present Denied Pain M4 OT- IP ADL's Start: 12/17/17 17:24 Freq: Status: Active Protocol: Document 12/18/17 16:13 [facility] (Rec: 12/18/17 16:18 [facility] [id number]) OT ADL-Dressing General Eval Lower Body Dressing Ability Moderate Assistance Comments OT Dressing Comments Able to use hostess and therapist to assist to get brief on , pt states to assist with needed. OT ADL-Toileting General Evaluation Toileting Ability Contact Guard Assistance Comments OT Toileting Comments CGA for balance and vc for throughness for pericare needs . Pt able to wipe and maintain back precautions while sitting on the toilet. Recommendeed use of wipes and brief at home. M5 OT- IP IADL's Start: 12/17/17 17:24 Freq: Status: Active Protocol: Document 12/17/17 11:57 [facility] (Rec: 12/17/17 17:44 [facility] [id number]) OT-Instrumental Activities of Daily Living Deficits IADL Deficits Identified Deficits Home Safety Awareness Awareness of Need for Assistance at Home Good Awareness Medication Management Medication Management Caregiver Provides Supervision Money Management Money Management Caregiver Provides Assistance Meal Preparation Meal Preparation Caregiver Provides Assist Sybase Developer Sybase Developer Caregiver Provides Assist Driving Driving Caregiver Provides Assist M6 OT- IP Functional Cognition Start: 12/17/17 17:24 Freq: Status: Active Protocol: Document 12/19/17 09:53 [facility] (Rec: 12/19/17 09:57 [facility] [id number]) Cognitive Factors Limiting Selfcare Function Cognitive Ability Level of Alertness Alert Patient Orientation Name Year Place Attention Span Ability Capable of Focused Attention Ability to Follow Commands Able to Follow One Step Commands Memory Description Short Term Impaired Safety Awareness Decreased Recall of Precautions Decreased Ability to Apply Precautions Problem Solving Ability Unable to Identify Errors Needs Assist to Identify Solutions Cognitive Comments Cognitive Assessment Comments Pt continues to have difficulty to recall back precautions, and need vc for safety of FWW to keep iin front of her at all times. Even with cues, pt still unable to remember all back precautions. Placed folder in front on of pt with precautions written down and re-reviewed all information inside. M7 OT- IP Mobility and Balance Start: 12/17/17 17:24 Freq: Status: Active Protocol: Document 12/19/17 09:53 [facility] (Rec: 12/19/17 09:57 [facility] [id number]) OT- Bed Mobility Assessment Rolling Type of Rolling Log Rolling Supine to Sit Supine to Sit Assist Minimal Assistance Sit to Supine Sit to Supine Assist Minimal Assistance OT-Transfer Assessment Sit to and From Stand Sit to and from Stand Standby Assistance Transfers Transfer Ability Standby Assistance Technique Transfer Destination Bed Comments Mobility Comments MAinly needing assist for BLE into and out of the bed. M8 OT- IP Objective Assessments Start: 12/17/17 17:24 Freq: Status: Active Protocol: Document 12/17/17 11:57 [facility] (Rec: 12/17/17 17:44 [facility] [id number]) OT Gross Range of Motion Upper Extremity Range of Motion Assessment Within Functional Limits OT Strength Upper Extremity Strength Assessment Within Functional Limits OT- Coordination Assessment Comments Coordination Comments BUE WFL OT-Muscle Tone Assessment Muscle Tone WNL Yes OT Sensation Assessment Comments Summary Comments WFL BUE M9 OT- IP Assessment and Plan Start: 12/17/17 17:24 Freq: Status: Active Protocol: Document 12/19/17 09:53 [facility] (Rec: 12/19/17 09:57 [facility] [id number]) OT Summary Assessment and Plan Summary OT Impairments Pain Balance Functional Cognition Functional Mobility Grooming Dressing Toileting Bathing Toilet Transfers Shower Transfers Progress Towards Goals Slow Progress due to Pain Slow Progress due to Cognition Goals Dressing Goal Standby Assistance Bathing Goal Minimal Assistance Shower Transfer Goal Contact Guard Assistance Patient/Caregiver Education Goal Demonstrate Post-Op Precautions Caregiver Independent Assisting Patient Days to Meet Goals 2 Frequency of Treatment Frequency Of Treatment Once a Day Treatment Plan OT Treatment Plan ADL Training Functional Mobility Patient/Family Education Discharge Planning Other Treatment Recommendations and Next Family training with Treatment Focus and more practice with back precautions and shower if appropriate. Discharge Recommendations OT Discharge Recommendations Home with 09/12 Assist Home Equipment Needs to obtain toilet paper aid, sock aid, elastic laces, FWW
--- NOTE | 2017-12-19 11:27 | PT.IPTN ---
Current Diagnoses Spondylolisthesis, lumbar region (12/16/17) Spinal stenosis, lumbar region with neurogenic claudication (12/16/17) Surgery Performed Operation Date: 12/16/17 10:15 Actual Procedures p L4-5 TLIF w/ Bone Graft - Sky Jimenez MD Physical Therapy Treatment Note M2 PT-IP Current Condition Start: 12/16/17 15:08 Freq: NEEDED Status: Active Protocol: Document 12/17/17 10:15 [facility] (Rec: 12/17/17 11:08 MDD [id number]) Physical Therapy Current Condition Current Condition Evaluation Date 12/17/17 Treatment Diagnosis s/p TLIF L4-5 Onset Date 12/16/17 Precautions Lumbar Precautions Log Roll No Twisting Limit Bending Lifting Restriction of 10 lbs Gait Belt above Incisional Area M3 PT-IP Subjective Start: 12/16/17 15:08 Freq: NEEDED Status: Active Protocol: Document 12/19/17 11:20 GGD (Rec: 12/19/17 11:27 GGD [id number]) Subjective Physical Therapy Visit Type Type Treatment Note Visit Start Time 10:30 Visit Stop Time 11:15 Total Visit Minutes 45 Number of [employer] Visits 4 Physical Therapy Visit Comments Patient Comments Pt willing to work with PT. States she has a 4WW at home. Therapy Pain Assessment Pain When Pain Assessed At Rest Pain Present Pain Present Denied Pain M4 PT-IP Mobility and Gait Start: 12/16/17 15:08 Freq: NEEDED Status: Active Protocol: Document 12/19/17 11:20 GGD (Rec: 12/19/17 11:27 GGD [id number]) PT-Bed Mobility Assessment Rolling Type of Rolling Log Rolling Roll to Right Supine to Sit Supine to Sit Standby Assistance Bedrails Sit to Supine Sit to Supine Contact Guard Assistance Minimal Assistance Bedrails Scooting Scooting to Edge of Bed Contact Guard Assistance PT-Transfer Assessment Sit to and From Stand Sit to and from Stand Contact Guard Assistance Equipment Transfer Assistive Device Gait Belt 4 Wheeled Walker Transfers Transfer Destination Bed Comments Mobility Comments Sit to stand from chair with SBA cues for safety with 4WW. Bed mobility x 3 with family training. Pt need mod cues and CGA for supine to sit, Cues and CGA, first time min A with LE for sit to supine. Gait Assessment Gait Gait Assistance Required: Contact Guard Assist Distance (Feet) (feet) 220 Assistive Devices Assistive Device Gait Belt 4 Wheeled Walker Factors Limiting Gait Function Factors Limiting Gait Function Decreased Activity Tolerance Pain Poor Safety Awareness M5 PT-IP Objective Assessments Start: 12/16/17 15:08 Freq: NEEDED Status: Active Protocol: Document 12/17/17 10:15 [facility] (Rec: 12/17/17 11:08 MDD [id number]) Orientation Orientation/Cognition Level of Alertness Alert Orientation Name Age Place Situation Language Function Ability Garbled Speech Word Finding Difficulties Safety Awareness Understands Safety Issues Memory Description Short Term Impaired Comments Pt reports some short term memory loss. When asked if her word finding difficulties are normal, states it's okay . Gross Range of Motion Lower Extremity ROM Assessment Within Functional Limits Strength Lower Extremity Strength Assessment Within Functional Limits Sensation Assessment Sensation Gross Sensation WNL Light Touch Intact M6 PT-IP Treatment Start: 12/16/17 15:08 Freq: NEEDED Status: Active Protocol: Document 12/19/17 11:20 [facility] (Rec: 12/19/17 11:27 GGD [id number]) Physical Therapy Treatment Education Education Provided Precautions M7 PT-IP Assessment and Plan Start: 12/16/17 15:08 Freq: NEEDED Status: Active Protocol: Document 12/19/17 11:20 [facility] (Rec: 12/19/17 11:27 GGD [id number]) PT Summary Assessment and Plan Summary Assessment Summary Pt needed cues for mobility and safety. was able to cue and assist pt with bed mobility. Reviewed precautions with and pt. Frequency of Treatment Frequency Of Treatment Twice a Day Treatment Plan Other Recommendations and Next Treatment Continue with bed mobility and Focus family training. Discharge Recommendations PT Discharge Recommendations Home Home with Assistance
[2017-12-19 11:40] VITALS: BP 141/62; PULSE 74; RESP 16; TEMP 36.7; O2SAT 95
--- NOTE | 2017-12-19 14:25 | PT.IPTN ---
Current Diagnoses Spondylolisthesis, lumbar region (12/16/17) Spinal stenosis, lumbar region with neurogenic claudication (12/16/17) Surgery Performed Operation Date: 12/16/17 10:15 Actual Procedures p L4-5 TLIF w/ Bone Graft - Sky Jimenez MD Physical Therapy Treatment Note M2 PT-IP Current Condition Start: 12/16/17 15:08 Freq: NEEDED Status: Active Protocol: Document 12/17/17 10:15 MDD (Rec: 12/17/17 11:08 MDD [id number]) Physical Therapy Current Condition Current Condition Evaluation Date 12/17/17 Treatment Diagnosis s/p TLIF L4-5 Onset Date 12/16/17 Precautions Lumbar Precautions Log Roll No Twisting Limit Bending Lifting Restriction of 10 lbs Gait Belt above Incisional Area M3 PT-IP Subjective Start: 12/16/17 15:08 Freq: NEEDED Status: Active Protocol: Document 12/19/17 14:25 GGD (Rec: 12/19/17 15:26 GGD [email or web address]) Subjective Physical Therapy Visit Type Type Treatment Note Visit Start Time 13:50 Visit Stop Time 14:25 Total Visit Minutes 35 Number of MACHINE LAY OUT WORKER Visits 5 Physical Therapy Visit Comments Patient Comments Pt states she willing to walk. Therapy Pain Assessment Pain When Pain Assessed At Rest Pain Present Pain Present Pain Reported Location Back Intensity 2 Scale Used Numeric (1 - 10) M4 PT-IP Mobility and Gait Start: 12/16/17 15:08 Freq: NEEDED Status: Active Protocol: Document 12/19/17 14:25 GGD (Rec: 12/19/17 15:26 GGD [email or web address]) PT-Bed Mobility Assessment Rolling Type of Rolling Log Rolling Roll to Right Supine to Sit Supine to Sit Standby Assistance Bedrails Sit to Supine Sit to Supine Contact Guard Assistance Bedrails Scooting Scooting to Edge of Bed Contact Guard Assistance PT-Transfer Assessment Sit to and From Stand Sit to and from Stand Contact Guard Assistance Equipment Transfer Assistive Device Gait Belt 4 Wheeled Walker Transfers Transfer Destination Bed Comments Mobility Comments PT need cues for log roll and safety with sit to stand. Gait Assessment Gait Gait Assistance Required: Contact Guard Assist Distance (Feet) (feet) 220 Assistive Devices Assistive Device Gait Belt 4 Wheeled Walker Factors Limiting Gait Function Factors Limiting Gait Function Decreased Activity Tolerance Pain Poor Safety Awareness Stair Climbing Assessment Evaluation Level of Assist On Stairs Contact Guard Assistance Devices Stair Climbing Assistive Devices Right Railing Technique/Endurance Stair Climbing Direction Ascend and Descend Stair Climbing Technique Step to Step Number of Steps Climbed 3 Query Text: Stair Climbing Set # Repetitions (reps) 1 M5 PT-IP Objective Assessments Start: 12/16/17 15:08 Freq: NEEDED Status: Active Protocol: Document 12/17/17 10:15 MDD (Rec: 12/17/17 11:08 MDD [id number]) Orientation Orientation/Cognition Level of Alertness Alert Orientation Name Age Place Situation Language Function Ability Garbled Speech Word Finding Difficulties Safety Awareness Understands Safety Issues Memory Description Short Term Impaired Comments Pt reports some short term memory loss. When asked if her word finding difficulties are normal, states it's okay . Gross Range of Motion Lower Extremity ROM Assessment Within Functional Limits Strength Lower Extremity Strength Assessment Within Functional Limits Sensation Assessment Sensation Gross Sensation WNL Light Touch Intact M6 PT-IP Treatment Start: 12/16/17 15:08 Freq: NEEDED Status: Active Protocol: Document 12/19/17 14:25 GGD (Rec: 12/19/17 15:26 GGD [email or web address]) Physical Therapy Treatment Education Education Provided Precautions M7 PT-IP Assessment and Plan Start: 12/16/17 15:08 Freq: NEEDED Status: Active Protocol: Document 12/19/17 14:25 GGD (Rec: 12/19/17 15:26 GGD [email or web address]) PT Summary Assessment and Plan Summary Assessment Summary Pt need cues for precautions and safety with mobility. She need less assist, but still mod cueing. She was safe and stable with stairs. Frequency of Treatment Frequency Of Treatment Twice a Day Treatment Plan Other Recommendations and Next Treatment Continue with bed mobility and Focus family training. Recommendations To Nursing Amount of Assist Needed 1 Person Assist Discharge Recommendations PT Discharge Recommendations Home Home with Assistance
[2017-12-19 16:23] VITALS: BP 145/83; PULSE 72; RESP 18; TEMP 36.6; O2SAT 97
[2017-12-19] MEDS: DOCUSATE 100 MG CAPSULE PO (20:44)
[2017-12-19] MEDS: GABAPENTIN 300 MG CAPSULE PO (20:44)
[2017-12-19] MEDS: SENNOSIDES 8.6 MG TABLET 17.2 MG PO (20:45)
[2017-12-19] MEDS: PRAMIPEXOLE 0.125 MG TABLET 0.25 MG PO (20:45)
[2017-12-19 21:00] VITALS: BP 149/62; PULSE 81; RESP 18; TEMP 37; O2SAT 97
[2017-12-19 23:54] VITALS: BP 127/61; PULSE 85; RESP 16; TEMP 37.4; O2SAT 97
[2017-12-20] MEDS: PANTOPRAZOLE 20 MG TABLET PO (05:41)
[2017-12-20] MEDS: LEVOTHYROXINE 75 MCG TABLET PO (05:41)
[2017-12-20] MEDS: CITALOPRAM 20 MG TABLET 40 MG PO (08:42)
[2017-12-20] MEDS: OXYBUTYNIN 5 MG TABLET PO (08:42)
[2017-12-20] MEDS: ACETAMINOPHEN 325 MG TABLET 975 MG PO (08:43)
[2017-12-20] MEDS: FLUTICASONE 120 SPRAY/16 GM SPRAY.SUSP NASAL (08:44)
[2017-12-20] MEDS: hydrOXYzine pamoate 25 MG CAPSULE PO (08:46)
--- NOTE | 2017-12-20 09:03 | CM.DPC ---
Addendum entered by KEYSHA Mendez 12/20/17 12:22: ADD: Per Ortho PA, pt medically stable to d/c home today with supportive spouse and follow up in their office in 10-14 days. No identified barriers to discharge. Plan: Patient to d/c home today via spouse POV and outpt follow up. No SW needs at this time. KEYSHA Mendez Original Note: Addendum entered by KEYSHA Mendez 12/20/17 09:22: ADD: Dtr Jeremiah returned SW phone message and SW updated her on pt status and possible options for additional support once pt discharges home and if pt does not progress as well as anticipated. Dtr appreciated resource information and update and will follow closely with pt and spouse after discharge to determine if pt requires any extra support. BF Original Note: DCP Cont: Per MD and PT, pt making progress with possible d/c home today with spouse. SW received a message from pt's Dtr Jeremiah ([phone]) stating that she has concerns with pt discharging home with spouse due to mobility and is requesting consideration of SNF rehab at d/c. SW spoke to FOOD MANAGER who has extensively worked with pt and spouse and completed multiple caregiver training and has discussed any possible concerns with pt and spouse and both feel comfortable with d/c home and have no concerns and have shown themselves to be capable during PT training. Per FOOD MANAGER, pt mobilizes quite well but requires some reminders and cues and spouse seems to adequately meet these needs. SNF could increase risk of infection and confusion for the pt. Spouse aware of Dtr's concerns and feels they are unnecessary. SW left pt's Dtr a voice msg with return phone number if she has further questions or concerns. Plan: SW to follow for likely pt d/c home with spouse when medically stable. KEYSHA Mendez
--- NOTE | 2017-12-20 09:05 | PT.IPTN ---
Current Diagnoses Spondylolisthesis, lumbar region (12/16/17) Spinal stenosis, lumbar region with neurogenic claudication (12/16/17) Surgery Performed Operation Date: 12/16/17 10:15 Actual Procedures p L4-5 TLIF w/ Bone Graft - Sky Jimenez MD Physical Therapy Treatment Note M2 PT-IP Current Condition Start: 12/16/17 15:08 Freq: NEEDED Status: Active Protocol: Document 12/17/17 10:15 MDD (Rec: 12/17/17 11:08 MDD [id number]) Physical Therapy Current Condition Current Condition Evaluation Date 12/17/17 Treatment Diagnosis s/p TLIF L4-5 Onset Date 12/16/17 Precautions Lumbar Precautions Log Roll No Twisting Limit Bending Lifting Restriction of 10 lbs Gait Belt above Incisional Area M3 PT-IP Subjective Start: 12/16/17 15:08 Freq: NEEDED Status: Active Protocol: Document 12/20/17 09:05 GGD (Rec: 12/20/17 12:25 GGD [id number]) Subjective Physical Therapy Visit Type Type Treatment Note Visit Start Time 08:40 Visit Stop Time 09:05 Total Visit Minutes 25 Number of CAFETERIA SERVER Visits 6 Physical Therapy Visit Comments Patient Comments Pt states she hopes to go home today. Therapy Pain Assessment Pain When Pain Assessed At Rest Pain Present Pain Present Pain Reported Location Back Intensity 4 Scale Used Numeric (1 - 10) M4 PT-IP Mobility and Gait Start: 12/16/17 15:08 Freq: NEEDED Status: Active Protocol: Document 12/20/17 09:05 GGD (Rec: 12/20/17 12:25 GGD [id number]) PT-Bed Mobility Assessment Rolling Type of Rolling Log Rolling Roll to Right Sit to Supine Sit to Supine Contact Guard Assistance Bedrails Scooting Scooting to Edge of Bed Contact Guard Assistance PT-Transfer Assessment Sit to and From Stand Sit to and from Stand Contact Guard Assistance Equipment Transfer Assistive Device Gait Belt 4 Wheeled Walker Transfers Transfer Destination Bed Comments Mobility Comments Pt need min cues for log roll and safety. Gait Assessment Gait Gait Assistance Required: Contact Guard Assist Assistive Devices Assistive Device Gait Belt 4 Wheeled Walker Factors Limiting Gait Function Factors Limiting Gait Function Decreased Activity Tolerance Pain Poor Safety Awareness M5 PT-IP Objective Assessments Start: 12/16/17 15:08 Freq: NEEDED Status: Active Protocol: Document 12/17/17 10:15 MDD (Rec: 12/17/17 11:08 MDD [id number]) Orientation Orientation/Cognition Level of Alertness Alert Orientation Name Age Place Situation Language Function Ability Garbled Speech Word Finding Difficulties Safety Awareness Understands Safety Issues Memory Description Short Term Impaired Comments Pt reports some short term memory loss. When asked if her word finding difficulties are normal, states it's okay . Gross Range of Motion Lower Extremity ROM Assessment Within Functional Limits Strength Lower Extremity Strength Assessment Within Functional Limits Sensation Assessment Sensation Gross Sensation WNL Light Touch Intact M6 PT-IP Treatment Start: 12/16/17 15:08 Freq: NEEDED Status: Active Protocol: Document 12/20/17 09:05 GGD (Rec: 12/20/17 12:25 GGD [id number]) Physical Therapy Treatment Education Education Provided Precautions M7 PT-IP Assessment and Plan Start: 12/16/17 15:08 Freq: NEEDED Status: Active Protocol: Document 12/20/17 09:05 GGD (Rec: 12/20/17 12:25 GGD [id number]) PT Summary Assessment and Plan Summary Assessment Summary Pt needing less cueing for safety, precautions and log roll. She improved with her log roll techinque. She had no LOB with gait. Frequency of Treatment Frequency Of Treatment Twice a Day Treatment Plan Other Recommendations and Next Treatment Continue with bed mobility and Focus family training. Recommendations To Nursing Amount of Assist Needed 1 Person Assist Discharge Recommendations PT Discharge Recommendations Home Home with Assistance
[2017-12-20 09:11] VITALS: BP 149/73; PULSE 77; RESP 18; TEMP 36; O2SAT 95
--- NOTE | 2017-12-20 10:25 | PM.DS.1 ---
History of Present Illness Date Patient Seen: 12/20/17 Time Patient Seen: 10:25 Chief complaint: L45 laminectomy tlif w/bone graft CODES/NOTES Narrative: Status post L4-L5 laminectomy, L4-L5 TLIF Patient's pain is mild. Patient's pain is controlled with Tylenol. No shortness of breath or chest pain. No nausea vomiting. Was up this morning taken a shower with occupational therapy. Patient's 's home and available to assist her. Discharge Providers Date of admission: 12/16/17 07:35 Consults: 12/16/17 14:40 Consult to Occupational Therapy Evaluate & Treat Comment: Physician Instructions: Evaluate and treat Consult to Physical Therapy Evaluate & Treat Comment: Physician Instructions: Evaluate and Treat Discharge provider: Bill Solis PA-C Summary Discharge Diagnosis: Status post L4-L5 laminectomy with microscope, at L4-L5 TLIF Hospital Course: Patient admitted to the hospital for the above-mentioned procedure. Patient taken to the operating room underwent surgery and is back in her room recovering and is in stable condition. Patient has worked with occupational therapy and physical therapy. She was slow to mobilize secondary to lower extremity weakness and dizziness due to pain meds. Her lower extremity weakness has improved. Dizziness has resolved. Patient currently managing pain with Tylenol. The patient feels ready for discharge home. Status at Discharge Functional status at discharge: uses cane/walker Overall status at discharge: patient is progressing back to baseline Time Spent with Patient Less than 30 minutes Exam Vital Signs (past 8 hours): - 12/20/17 09:11 Temperature 96.8 F L Pulse Rate 77 Respiratory Rate 18 Blood Pressure 149/73 H Pulse Oximetry 95 Fraction of Inspired Oxygen 21 Oxygen Delivery Method Room Air Oxygen Flow Rate 0 Narrative Exam Narrative: 82-year-old female sitting in bedside chair in no apparent distress. Patient is alert and oriented. Dressing is clean, dry and intact. Neurovascular status is intact to the bilateral lower extremities. Objective Labs Result Diagrams: 12/17/17 05:30 12/17/17 05:30 Discharge Plan Discharge Plan Patient Disposition: Home, Self-Care Discharge comment: Patient will follow-up with [facility] in 10-14 days. Discharge Med Rec/Prescriptions Prescriptions: New hydrocodone-acetaminophen 5-325 mg Tablet 1 tab PO Q4HR PRN (Reason: Pain, Moderate (4-6)) Qty: 30 RF: 0 Continue citalopram 40 mg Tablet 40 mg PO QAM RF: 0 acetaminophen [Tylenol Extra Strength] 500 mg Tablet 1,000 mg PO BID RF: 0 levothyroxine [Synthroid] 75 mcg Tablet 75 mcg PO DAILY RF: 0 pramipexole 0.125 mg Tablet 2 tab PO BEDTIME RF: 0 omeprazole 20 mg Capsule,Delayed Release(Dr/Ec) 20 mg PO QAM RF: 0 oxybutynin chloride 5 mg Tablet 5 mg PO DAILY RF: 0 fluticasone 50 mcg/actuation Ozone,Suspension 1 spray INTRANASAL DAILY RF: 0 gabapentin 300 mg Capsule 1 - 2 tab PO BEDTIME RF: 0 Follow up/Referrals: Sky Jimenez MD [Physician] - (Follow-up in 10-14 days ) Provider Discharge Instructions Diet: Diet as Tolerated Activity: Limited bending, twisting, lifting Cold/Heat Therapy: Ice to low back as needed Wound Care Dressing: Keep dressing clean and dry Discharge Data Attending Provider: Sky Jimenez Admit Date/Time: 12/16/17 07:35 Quality VTE Deep Vein Thrombosis/Pulmonary Embolism Present on Admission: No
--- NOTE | 2017-12-20 11:10 | OT.IP.TRT ---
Current Diagnoses Spondylolisthesis, lumbar region (12/16/17) Spinal stenosis, lumbar region with neurogenic claudication (12/16/17) Surgery Performed Operation Date: 12/16/17 10:15 Actual Procedures p L4-5 TLIF w/ Bone Graft - Sky Jimenez MD Occupational Therapy Treatment Note M2 OT-IP Current Condition Start: 12/17/17 17:24 Freq: Status: Active Protocol: Document 12/18/17 16:13 [facility] (Rec: 12/18/17 16:18 [facility] [email or web address]) Occupational Therapy Current Condition Current Condition Evaluation Date 12/17/17 Treatment Diagnosis decreased self care, functional mobility s/p L4-5 lami, TLIF Diagnosis Onset Date 12/16/17 Post Operative Precautions Lumbar Precautions Log Roll No Twisting Limit Bending Lifting Restriction of 10 lbs Gait Belt above Incisional Area M3 OT- IP Subjective and Pain Start: 12/17/17 17:24 Freq: Status: Active Protocol: Document 12/20/17 09:30 [facility] (Rec: 12/20/17 11:10 [facility] [email or web address]) OT- Subjective Occupational Therapy Visit Type Type Treatment Note Visit Start Time 09:30 Visit Stop Time 10:40 Total Visit Minutes 70 Occupational Therapy Visit Comments Patient Comments Pt agreeing to shower. Patient/Caregiver Goals To go home. OT Pain Assessment Pain When Pain Assessed At Rest Pain Present Pain Present Pain Reported M4 OT- IP ADL's Start: 12/17/17 17:24 Freq: Status: Active Protocol: Document 12/20/17 09:30 [facility] (Rec: 12/20/17 11:10 [facility] [id number]) OT ADL-Grooming General Evaluation Grooming Ability Standby Assistance Areas Needing Assistance Retrieving/Set-up of Grooming Items Face Washing Comments OT Grooming Comments SBA at sink. OT ADL-Dressing General Eval Upper Body Dressing Ability Minimal Assistance Lower Body Dressing Ability Moderate Assistance Areas Needing Assistance Underpants/Brief Socks Shoes Comments OT Dressing Comments Assist to get over her feet initiallt and for bra fastener . OT ADL-Toileting General Evaluation Toileting Ability Standby Assistance Comments OT Toileting Comments VC for completeness to wipe. OT ADL-Bathing Bathing Type Bathing Type Shower General Evaluation Bathing Ability Minimal Assistance Areas Needing Assistance Wash/Dry Back Wash/Dry Lower Extremities Comments OT Bathing Comments VC to use grab bars to stand. M5 OT- IP IADL's Start: 12/17/17 17:24 Freq: Status: Active Protocol: Document 12/17/17 11:57 PJM (Rec: 12/17/17 17:44 PJM [id number]) OT-Instrumental Activities of Daily Living Deficits IADL Deficits Identified Deficits Home Safety Awareness Awareness of Need for Assistance at Home Good Awareness Medication Management Medication Management Caregiver Provides Supervision Money Management Money Management Caregiver Provides Assistance Meal Preparation Meal Preparation Caregiver Provides Assist Mold Runner Mold Runner Caregiver Provides Assist Driving Driving Caregiver Provides Assist M6 OT- IP Functional Cognition Start: 12/17/17 17:24 Freq: Status: Active Protocol: Document 12/20/17 09:30 [facility] (Rec: 12/20/17 11:10 [facility] [email or web address]) Cognitive Factors Limiting Selfcare Function Cognitive Ability Level of Alertness Alert Patient Orientation Name Year Place Attention Span Ability Capable of Focused Attention Capable of Sustained Attention Ability to Follow Commands Able to Follow Multi-Step Commands Safety Awareness Decreased Ability to Apply Precautions Problem Solving Ability Needs Assist to Identify Solutions Cognitive Comments Cognitive Assessment Comments Pt doing better today and able to note to to grain picker briefs for home and look for sock aid as well. states has good understanding for all needs for pt and how to assist. M7 OT- IP Mobility and Balance Start: 12/17/17 17:24 Freq: Status: Active Protocol: Document 12/20/17 09:30 [facility] (Rec: 12/20/17 11:10 [facility] [email or web address]) OT- Bed Mobility Assessment Rolling Type of Rolling Log Rolling Supine to Sit Supine to Sit Assist Contact Guard Assistance OT-Transfer Assessment Sit to and From Stand Sit to and from Stand Standby Assistance Transfers Transfer Ability Standby Assistance Technique Transfer Destination Bed Chair Shower Stall Toilet Comments Mobility Comments VC to roll over more so able to get up from her side. M8 OT- IP Objective Assessments Start: 12/17/17 17:24 Freq: Status: Active Protocol: Document 12/17/17 11:57 PJM (Rec: 12/17/17 17:44 P[facility] [id number]) OT Gross Range of Motion Upper Extremity Range of Motion Assessment Within Functional Limits OT Strength Upper Extremity Strength Assessment Within Functional Limits OT- Coordination Assessment Comments Coordination Comments BUE WFL OT-Muscle Tone Assessment Muscle Tone WNL Yes OT Sensation Assessment Comments Summary Comments WFL BUE M9 OT- IP Assessment and Plan Start: 12/17/17 17:24 Freq: Status: Active Protocol: Document 12/20/17 09:30 [facility] (Rec: 12/20/17 11:10 [facility] [email or web address]) OT Summary Assessment and Plan Summary Progress Towards Goals Progressing Toward Goals Frequency of Treatment Frequency Of Treatment Once a Day Treatment Plan OT Treatment Plan ADL Training Functional Mobility Patient/Family Education Discharge Planning Discharge Recommendations OT Discharge Recommendations Home with / Assist
--- NOTE | 2017-12-20 12:30 | PC.NURSE ---
Discharge: Feels ready to d/c home today. Pain is in fairly good control per pt. Doesn't like to take narcotics as they Make me goofy. Pt did discuss trying hydrocodone w/PA and he did write her a script for same. Can even break med in half. Give half a tab and the spouse is aware of this. If disorientation occurs again, stop and notify md. She didn't want to try the hydrocodone prior to leaving. She only wants to use it if needed. PT/OT saw pt and have given final instructions. Had a shower and dressing was changed to low back. Has 2 incision w/extensive bruising at the distal end, sutures intact, edges approx, minimal redness, no drainage. Spouse given one dressing in case needed until he can pear picker supplies. Rx given. Reviewed instructions for surgery and constipation. Discharge packet given. Questions answered. Pt d/c home via auto w/spouse.
== END 2017-12-20 10:50 | disposition home or self-care (01) | DRG 455 ==
PROVIDERS: Admitting Provider Orthopaedic Surgery; Visit Provider Orthopaedic Surgery
PROC: 0SG00AJ Fusion of Lumbar Vertebral Joint with Interbody Fusion Device, Posterior Approach, Anterior Column, Open Approach (ICD-10-PCS; principal; 2017-12-16 10:15)
DX: M48.062 Spinal stenosis, lumbar region with neurogenic claudication (principal); M43.16 Spondylolisthesis, lumbar region; E07.9 Disorder of thyroid, unspecified; N18.9 Chronic kidney disease, unspecified; I10 Essential (primary) hypertension; F32.9 Major depressive disorder, single episode, unspecified; R42 Dizziness and giddiness; T40.2X5A Adverse effect of other opioids, initial encounter
CPT/HCPCS: 36415; 71045; 72100; 76001; 80048; 82962; 85014; 85018; 94760; 94762; 97116; 97161; 97165; 97530; 97535; C1776; C1788; J0330; J0595; J0690; J1100; J2274; J2405; J2704; J3010; J3410; J8501